=== PATIENT | male | born 1975 | race Caucasian/White ===

== ENCOUNTER 2024-05-17 21:07 | Emergency (ER) | payer BC ==
[2024-05-17] MEDS: PROPARACAINE 0.5% OPHTH DROPS 15 ML BTL LEFT EYE STA (22:34)
[2024-05-17] MEDS: FLUORESCEIN STRIPS 1 MG STRIP LEFT EYE ONE (22:34)
--- NOTE | 2024-05-17 23:23 | ED ---
Eye Problem HPI - General Chief complaint: Eye Problems Stated complaint: Left eye pain Time Seen by Provider: 05/17/24 22:09 Source: patient Mode of arrival: ambulatory Limitations: no limitations - History of Present Illness Initial comments: 49-year-old male presenting with chief complaint of left eye pain. 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 Today he still admits to foreign body sensation as well as some redness and tearing. Contact lenses. Very mild blurry vision. Extraocular motions intact. No periorbital swelling or redness. No fevers or neck pain. - Related Data Home Medications Medication Instructions Recorded Confirmed No Known Home Medications 03/14/16 07/06/16 Allergies Allergy/AdvReac Type Severity Reaction Status Date / Time No Known Allergies Allergy Verified 05/17/24 21:20 Review of Systems ROS Statement: Those systems with pertinent positive or pertinent negative responses have been documented in the HPI. ROS Other: All systems not noted in ROS Statement are negative. Past Medical History Past Medical History: Hyperlipidemia Additional Past Medical History / Comment(s): back pain History of Any Multi-Drug Resistant Organisms: None Reported Past Surgical History: No Surgical Hx Reported Past Psychological History: No Psychological Hx Reported Smoking Status: Never smoker Past Alcohol Use History: Occasional Past Drug Use History: None Reported General Exam Limitations: no limitations General appearance: alert, in no apparent distress Head exam: Present: atraumatic, normocephalic Eye exam: Present: PERRL, EOMI. Absent: periorbital swelling, periorbital tenderness Expanded Sclera/Conjunctival: Foreign Body: Left (rust ring) Neck exam: Present: normal inspection. Absent: meningismus Respiratory exam: Absent: respiratory distress Cardiovascular Exam: Present: regular rate Neurological exam: Present: alert, oriented X3 Psychiatric exam: Present: normal affect, normal mood Skin exam: Present: normal color Course Vital Signs 05/17/24 05/17/24 21:16 23:42 Temperature 98.2 F 98.6 F Pulse Rate 81 80 Respiratory 20 18 Rate Blood Pressure 132/81 132/87 O2 Sat by Pulse 99 99 Oximetry Medical Decision Making - Medical Decision Making Was pt. sent in by a medical professional or institution (, PA, MEDICAL UNDERWRITER, urgent care, hospital, or detention...) When possible be specific @ -No Did you speak to anyone other than the patient for history (EMS, parent, family, police, friend...)? What history was obtained from this source @ -No Did you review nursing and triage notes (agree or disagree)? Why? @ -I reviewed and agree with nursing and triage notes Were old charts reviewed (outside hosp., previous admission, EMS record, old EKG, old radiological studies, urgent care reports/EKG's, detention records)? Report findings @ -No old charts were reviewed Differential Diagnosis (chest pain, altered mental status, abdominal pain women, abdominal pain men, vaginal bleeding, weakness, fever, dyspnea, syncope, headache, dizziness, GI bleed, back pain, seizure, CVA, palpatations, mental health, musculoskeletal)? @ -Differential includes corneal abrasion, foreign body, corneal ulcer, acute angle-closure glaucoma, this is not an all-inclusive list EKG interpreted by me (3pts min.). @ -As above X-rays interpreted by me (1pt min.). @ -None done CT interpreted by me (1pt min.). @ -None done U/S interpreted by me (1pt. min.). @ -None done What testing was considered but not performed or refused? (CT, X-rays, U/S, labs)? Why? @ -None What meds were considered but not given or refused? Why? @ -None Did you discuss the management of the patient with other professionals (professionals i.e. , PA, MEDICAL UNDERWRITER, lab, RT, psych nurse, marriage and family social worker, catalyst operator chief, teacher, marketing officer, rn case manager)? Give summary @ -No Was smoking cessation discussed for >3mins.? @ -No Was critical care preformed (if so, how long)? @ -No Were there social determinants of health that impacted care today? How? (Homelessness, low income, unemployed, alcoholism, drug addiction, transportation, low edu. Level, literacy, decrease access to med. care, half-way, rehab)? @ -No Was there de-escalation of care discussed even if they declined (Discuss DNR or withdrawal of care, Hospice)? DNR status @ -No What co-morbidities impacted this encounter? (DM, HTN, Smoking, COPD, CAD, Cancer, CVA, ARF, Chemo, Hep., AIDS, mental health diagnosis, sleep apnea, morbid obesity)? @ -None Was patient admitted / discharged? Hospital course, mention meds given and route, prescriptions, significant lab abnormalities, going to OR and other pertinent info. @ -49-year-old male present with chief complaint of left eye pain and foreign body sensation. He was doing work on brakes yesterday. On Martinez lamp examination with fluorescein staining there uptake in the 8 o'clock position. There does appear to be a rust ring. Slit-lamp is not available for further examination. Patient is started on sulfacetamide eyedrops and provided with ketorolac eyedrops as well. Instructed to follow-up with ophthalmology. Discharged home. Follow-up with PCP. Report back to ER with any new or worsening symptoms. Discussed return parameters and answered all questions. Patient conveyed verbal understanding and agreed to the plan. I discussed this case in detail with my attending Dr. Salas Undiagnosed new problem with uncertain prognosis? @ -No Drug Therapy requiring intensive monitoring for toxicity (Heparin, Nitro, Insulin, Cardizem)? @ -No Were any procedures done? @ -No Diagnosis/symptom? @ -Corneal abrasion, rust ring Acute, or Chronic, or Acute on Chronic? @ -Acute Uncomplicated (without systemic symptoms) or Complicated (systemic symptoms)? @ -Uncomplicated Side effects of treatment? @ -No Exacerbation, Progression, or Severe Exacerbation? @ -No Poses a threat to life or bodily function? How? (Chest pain, [place], SC, pneumonia, PE, COPD, DKA, ARF, appy, cholecystitis, CVA, Diverticulitis, Homicidal, Suicidal, threat to staff... and all critical care pts) @ -Low likelihood Disposition Clinical Impression: Corneal abrasion, Corneal rust ring Disposition: HOME SELF-CARE Condition: Good Instructions (If sedation given, give patient instructions): Corneal Abrasion (ED) Additional Instructions: Follow-up with ophthalmology, options provided. Report back to ER with any new or worsening symptoms. Apply sulfacetamide eyedrops 2 drops 4 times daily to the affected eye for 5 days to prevent infection Apply 1 ketorolac eyedrop up to 4 times daily as needed for pain Is patient prescribed a controlled substance at d/c from ED?: No Referrals: Migue Jacinto MD [Primary Care Provider] - 1-2 days Juan Sanchez MD [STAFF PHYSICIAN] - 1-2 days Brenda Swann MD [STAFF PHYSICIAN] - 1-2 days Shree Candelaria MD [STAFF PHYSICIAN] - 1-2 days Time of Disposition: 23:23
[2024-05-17] MEDS: IBUPROFEN 600 MG TAB PO STA (23:27)
[2024-05-17] MEDS: DIPH,PERTUS(ACELL)TETVAC-LF 0.5 ML VIAL IM ONE (23:30)
[2024-05-17 23:43] VITALS: BP 132/87; PULSE 80; RESP 18; TEMP 98.6
[2024-05-17] MEDS: SULFACETAMIDE SOD 10% OPHTH DROPS 15 ML BTL LEFT EYE STA (23:56)
[2024-05-17] MEDS: KETOROLAC 0.5% OPHTH DROPS 5 ML BTL LEFT EYE STA (23:56)
== END 2024-05-18 00:01 | disposition home or self-care (01) ==
LOC: EC 21:07
DX: S05.02XA Injury of conjunctiva and corneal abrasion without foreign body, left eye, initial encounter (principal); Z23 Encounter for immunization; X58.XXXA Exposure to other specified factors, initial encounter
CPT/HCPCS: 90471; 90715; 99283